=== PATIENT | male | born 1990 | race Caucasian/White ===

== ENCOUNTER 2021-05-02 23:51 | Emergency (ER) | payer OTHER, SELFPAY ==
--- NOTE | ~2021-05-02 | XR_ITS ---
XR foot RT min 3V DATE: 05/03/2021 00:16 INDICATION: Stepped on a screw at work tonight; pain at third metatarsal and third digit area TECHNIQUE: 4 views COMPARISON: None FINDINGS: No fracture or dislocation, periosteal reaction or bone destruction, subcutaneous emphysema or radiopaque foreign body. IMPRESSION: Negative Reviewed, dictated and finalized at location B. [facility] IMPRESSION: Negative
[2021-05-02 23:53] VITALS: BP 164/88; PULSE 103; RESP 18; TEMP 36.9; O2SAT 98
--- NOTE | 2021-05-03 00:18 | ED.LOWEXIN ---
HPI - Extremity Injury (Lower) General Chief Complaint: Extremity Injury, Lower Stated Complaint: stepped on a screw Time Seen by Provider: 05/03/21 00:08 Source: RN notes reviewed History of Present Illness HPI Narrative: Patient presents emergency department from work for stepping on a screw. Patient states that he was at work when he stepped on a screw went through his shoe into the base of his right foot states that time he pulled the screw out and took off his shoe noticed small puncture wound states the foot is painful to step on he states that a screw did not go all the way through the foot he denies any fevers or chills numbness or tingling or any other symptoms unsure of his last tetanus shot Related Data Allergies Allergy/AdvReac Type Severity Reaction Status Date / Time Sulfa (Sulfonamide Allergy Unknown HIVES Verified 05/03/21 00:17 Antibiotics) Review of Systems Review of Systems: Gen.: Denies fevers or chills Musculoskeletal: See HPI Neuro: Denies numbness, tingling, weakness Skin: Reports puncture wound Endo: Denies DM PMFSH Past Medical History Medical History (Updated 05/03/21 @ 00:22 by Yao Emanuel DO) Patient denies significant medical history Social History Social History (Updated 05/03/21 @ 00:21 by Yao Emanuel DO) Smoking status: Never smoker Exam Narrative: APPEARANCE: No acute distress, nontoxic, resting in bed Eyes: EOMI HEENT: Normocephalic, atraumatic, RESPIRATORY: No respiratory distress MUSCULOSKELETAl: Tender palpation over the plantar aspect of the right foot in the region of the fourth metatarsal with puncture wound present no active bleeding no surrounding erythema or drainage signs of infection dorsalis pedis pulse 2+ neurovascular intact NEURO: Awake and alert. Following commands, speech normal, no focal deficits SKIN:: Warm, dry. Normal see extremity Course Course Emergency Course: Puncture wound cleaned with Betadine swab over wound and sterile dressing placed Discussed with patient results of workup and diagnosis. Discussed need for follow-up with primary care, proper use of medication, and reasons to return to the emergency department. Patient understands and agrees to current treatment plan Vital Signs Vital signs: Vital Signs Temperature 98.4 F 05/02/21 23:53 Pulse Rate 103 H 05/02/21 23:53 Respiratory Rate 18 05/02/21 23:53 Blood Pressure 164/88 H 05/02/21 23:53 Pulse Oximetry 98 05/02/21 23:53 Temperature 98.4 F 05/02/21 23:53 Pulse Rate 103 H 05/02/21 23:53 Respiratory Rate 18 05/02/21 23:53 Blood Pressure 164/88 H 05/02/21 23:53 Pulse Oximetry 98 05/02/21 23:53 MDM - Extremity Injury (Lower) Imaging Data Attestation: I personally reviewed and interpreted this imaging study as follows: My impression: Foot x-ray reviewed by myself shows no process no foreign body seen Discharge Plan Discharge Clinical Impression: Puncture wound of foot, right Patient Disposition: Home, Self-Care Condition: Stable Instructions: Antibiotic Form, Puncture Wound in the Foot (ED) Additional Instructions: Return for increasing pain redness of the foot or any other symptoms or concern. Soak the foot in warm water for approximately 15 minutes twice a day for the next 2 days Prescriptions: New ibuprofen [IBU] 600 mg tablet 600 mg PO Q6H PRN (Reason: pain) Qty: 20 RF: 0 levofloxacin 500 mg tablet 500 mg PO DAILY 4 Days Qty: 4 RF: 0 hydrocodone-acetaminophen 5-325 mg tablet 1 tablet PO Q4H PRN (Reason: pain) Qty: 6 RF: 0 Follow-up/Referrals: Eun,Katelynn Posey DO [Primary Care Provider] - 2 Days Time of Disposition: 00:22
[2021-05-03] MEDS: levoFLOXacin 500 MG TABLET PO (00:36)
[2021-05-03] MEDS: HYDROcodone/acetaminophen (*CRX) 5-325 MG TABLET 1 TAB PO (00:36)
[2021-05-03] MEDS: TETANUS,DIPHTHERIA,AC PERTUSSIS ADULT (0.5 ML) BOOSTRIX IM (00:37)
== END 2021-05-03 01:00 | disposition home or self-care (01) ==
PROVIDERS: Emergency Provider Emergency Medicine; PCP Family Medicine
DX: S91.331A Puncture wound without foreign body, right foot, initial encounter (principal); Z23 Encounter for immunization; W26.8XXA Contact with other sharp object(s), not elsewhere classified, initial encounter
CPT/HCPCS: 73630; 90471; 90715; 99283; A9270

== ENCOUNTER 2022-11-10 14:13 | Emergency (ER) | payer OTHER, SELFPAY ==
[2022-11-10 14:14] VITALS: BP 189/98; PULSE 116; RESP 19; TEMP 36.6; O2SAT 99
--- NOTE | 2022-11-10 14:47 | ED.DENTAL ---
HPI - Dental/Oral General Chief complaint: Dental/Oral Stated complaint: Broken Tooth, Left Side Time Seen by Provider: 11/10/22 14:23 History of Present Illness HPI Narrative: 32-year-old male reports for evaluation for left lower tooth pain x2 days. Patient states 4 months ago, he was eating a olive with a had a pit in it and cracked his tooth. States he has not had any pain until 2 days ago after he ate a taco. States he has difficulty sleeping secondary to the pain. Reports the pain starts in his tooth and radiates to his ear and down his neck. He denies difficulty breathing, swallowing, difficulty tolerating secretions, fever, vomiting. He has an appointment with his dentist in 3 days. Related Data Allergies Allergy/AdvReac Type Severity Reaction Status Date / Time Sulfa (Sulfonamide Allergy Unknown HIVES Verified 11/10/22 14:19 Antibiotics) Review of Systems Review of Systems: CONSTITUTIONAL: Denies fever, chills EYES: Denies visual changes, redness, or discharge. ENT: See HPI CARDIOVASCULAR: Denies chest pain, palpitations, or edema. RESPIRATORY: Denies cough or dyspnea. GASTROINTESTINAL: Denies abdominal pain, nausea, vomiting, or diarrhea. GENITOURINARY: Denies dysuria or hematuria. SKIN: Denies rash or itching. MUSCULOSKELETAL: Denies back pain, joint pain, or myalgia. NEUROLOGIC: Denies headache, numbness, dizziness, or weakness. PSYCHIATRIC: Denies anxiety or depression. [facility] Past Medical History Medical History Patient denies significant medical history Social History Social History Smoking status: Never smoker Exam Narrative: GENERAL: Well-appearing, in no acute distress. HEAD: Normocephalic EYES: PERRLA, EOMI ENT: Nares clear. Mucous membranes moist. Oropharynx without tonsillar hypertrophy exudate or other lesions. Fractured left lower molar without erythema to surrounding gingiva or evidence of periapical abscess. There is tenderness surrounding the left lower molar. No edema to gingiva, cheek or floor of mouth. Floor of mouth is soft without crepitus. No trismus. Patient tolerating secretions. No nuchal rigidity. Bilateral TMs are childs nonbulging. No pain with movement of auricles. NECK: Supple. No nuchal rigidity. CHEST: No respiratory distress. Clear to auscultation, no adventitious breath sounds. HEART: Regular rate and rhythm. No murmur heard. Normal peripheral pulses. EXTREMITIES: Normal range of motion. No edema. SKIN: Warm, dry, no rash. NEURO: No focal deficits. Alert and oriented x3. PSYCH: Anxious appearing Course Vital Signs Vital signs: Vital Signs Temperature 97.9 F 11/10/22 14:14 Pulse Rate 116 H 11/10/22 14:14 Respiratory Rate 19 11/10/22 14:14 Blood Pressure 189/98 H 11/10/22 14:14 Pulse Oximetry 99 11/10/22 14:14 Oxygen Delivery Room Air 11/10/22 14:14 Temperature 97.9 F 11/10/22 14:14 Pulse Rate 98 11/10/22 15:09 Respiratory Rate 18 11/10/22 15:09 Blood Pressure 155/88 H 11/10/22 15:09 Pulse Oximetry 98 11/10/22 15:09 Oxygen Delivery Room Air 11/10/22 14:14 MDM - Dental/Oral MDM Narrative Medical decision making narrative: 32-year-old male reports for evaluation for left lower tooth pain x2 days. Patient fractured his tooth approximately 4 months ago and developed pain 2 days ago. Exam is reassuring and significant for the above. No trismus, he is tolerating secretions. Floor mouth is soft without crepitus. Deep space infection less likely given exam. Vitals are significant for elevated blood pressure and tachycardia of 116. He does appear anxious on exam and states he has not taken his hypertensive medications today because he woke up and came to the ER for pain. Plan to treat for possible infectious etiology that may explain the worsening pain with Augmentin. Encouraged Tylenol a
[2022-11-10] MEDS: HYDROcodone/acetaminophen (*CRX) 5-325 MG TABLET 1 TAB PO (14:52)
[2022-11-10] MEDS: AMOXICILLIN/CLAVULANATE K 875-125 MG TAB 1 TABLET PO (14:53)
[2022-11-10] MEDS: KETOROLAC 30 MG/ML VIAL (*BKC) IM (14:54)
[2022-11-10 15:09] VITALS: BP 155/88; PULSE 98; RESP 18; O2SAT 98
== END 2022-11-10 15:21 | disposition home or self-care (01) ==
LOC: ANHED 14:58
PROVIDERS: Emergency Provider Physician Assistant; PCP Family Medicine
DX: K08.89 Other specified disorders of teeth and supporting structures (principal)
CPT/HCPCS: 96372; 99283; A9270; J1885